=== PATIENT | female | born 1985 | race African-American/Black ===

== ENCOUNTER 2017-09-02 09:54 | Emergency (ER) | payer SELFPAY ==
[~2017-09-02] VITALS: Ht 167.6 cm; Wt 80.0 kg
[2017-09-02] MEDS ORDERED: [UNRECOGNIZED DRUG - REMARK] (10:06)
[2017-09-02] MEDS ORDERED: SODIUM CHLORIDE 0.9% 1,000 ML IV ONE (10:17)
[2017-09-02] MEDS ORDERED: KETOROLAC 30MG/ML VIAL IV STA (10:17)
[2017-09-02] MEDS ORDERED: ONDANSETRON HCL 4MG/2ML VIAL IV STA (10:17)
[2017-09-02] MEDS ORDERED: FAMOTIDINE 20MG/2ML VIAL IV STA (10:17)
[2017-09-02 11:00] LABS: BASOPHILS % 0.5 % (0.0-2.0); EOSINOPHILS % 0.1 % (0.0-5.0); HEMATOCRIT. 40.7 % (36.0-48.0); HEMOGLOBIN. 13.8 g/dL (12.0-16.0); LYMPHOCYTES % 15.1 % (20.0-50.0); MEAN CORPUSCULAR HEMOGLOBIN 29.5 pg (28.0-32.0); MEAN CORPUSCULAR VOLUME 87.3 fL (81.0-99.0); MEAN PLATELET VOLUME 6.2 fl (7.4-10.4); MONOCYTES % 6.4 % (2.0-8.0); NEUTROPHILS % 77.9 % (40.0-76.0); PLATELET 370 x1000/uL (130-400); RED BLOOD CELL COUNT 4.66 mill/uL (4.2-5.4); RED CELL DISTRIBUTION WIDTH 13.7 % (11.6-14.6)
[2017-09-02 11:07] LABS: CHLORIDE 104 mEq/L (98-107)
[2017-09-02 11:09] LABS: INR 1.2; PROTHROMBIN TIME 12.1 sec (9.4-11.6)
[2017-09-02 11:11] LABS: HCG SCREEN NEGATIVE
[2017-09-02 12:40] LABS: CLARITY URINE CLEAR (CLEAR); COLOR URINE YELLOW (YELLOW); KETONES URINE 4+ (NEGATIVE); LEUKOCYTE ESTERASE URINE NEGATIVE (NEGATIVE); NITRITE URINE NEGATIVE (NEGATIVE); OCCULT BLOOD URINE TRACE (NEGATIVE); PH URINE 5.5 (4.5-8.0); PROTEIN URINE 1+ (NEGATIVE); SPECIFIC GRAVITY URINE 1.032 (1.005-1.030)
[2017-09-02] MEDS ORDERED: ONDANSETRON HCL 4MG TABLET PO ONE (13:00)
[2017-09-02 13:54] VITALS: BP 102/59
== END 2017-09-02 13:55 | disposition home or self-care (01) ==
LOC: ER 09:54
DX: R11.2 Nausea with vomiting, unspecified (principal); R19.7 Diarrhea, unspecified; R10.30 Lower abdominal pain, unspecified; M25.531 Pain in right wrist; F17.200 Nicotine dependence, unspecified, uncomplicated; F12.10 Cannabis abuse, uncomplicated; Z98.51 Tubal ligation status; W01.198A Fall on same level from slipping, tripping and stumbling with subsequent striking against other object, initial encounter; Y93.89 Activity, other specified; Y92.89 Other specified places as the place of occurrence of the external cause; Y99.8 Other external cause status
CPT/HCPCS: 36415; 73100; 80053; 81003; 83690; 84703; 85025; 85610; 96361; 96374; 96375; 99285; J1885; J2405; J3490; J7030; Z7610

== ENCOUNTER 2017-10-03 06:12 | Emergency (ER) | payer SELFPAY ==
[~2017-10-03] VITALS: Ht 170.2 cm; Wt 78.0 kg
[~2017-10-03 06:12] MED LIST: [UNRECOGNIZED DRUG - REMARK]
[2017-10-03] MEDS ORDERED: SODIUM CHLORIDE 0.9% 1,000 ML IV ONE (07:39)
[2017-10-03] MEDS ORDERED: ONDANSETRON HCL 4MG/2ML VIAL IV STA (07:39)
[2017-10-03] MEDS ORDERED: MORPHINE SULFATE 4 MG/ML CPJ (NOT FOR IM USE) IV STA (07:39)
[2017-10-03 08:10] LABS: BASOPHILS % 0.8 % (0.0-2.0); EOSINOPHILS % 0.2 % (0.0-5.0); HEMATOCRIT. 36.8 % (36.0-48.0); HEMOGLOBIN. 12.5 g/dL (12.0-16.0); LYMPHOCYTES % 24.1 % (20.0-50.0); MEAN CORPUSCULAR HEMOGLOBIN 29.7 pg (28.0-32.0); MEAN CORPUSCULAR VOLUME 87.7 fL (81.0-99.0); MONOCYTES % 6.3 % (2.0-8.0); NEUTROPHILS % 68.6 % (40.0-76.0); PLATELET 434 x1000/uL (130-400); RED CELL DISTRIBUTION WIDTH 14.1 % (11.6-14.6)
[2017-10-03 08:15] LABS: CLARITY URINE CLOUDY (CLEAR); COLOR URINE YELLOW (YELLOW); KETONES URINE 1+ (NEGATIVE); LEUKOCYTE ESTERASE URINE NEGATIVE (NEGATIVE); NITRITE URINE NEGATIVE (NEGATIVE); OCCULT BLOOD URINE 3+ (NEGATIVE); PH URINE 7.5 (4.5-8.0); PROTEIN URINE TRACE (NEGATIVE); SPECIFIC GRAVITY URINE 1.008 (1.005-1.030)
[2017-10-03 08:18] LABS: CHLORIDE 109 mEq/L (98-107)
[2017-10-03 08:26] LABS: HCG SCREEN NEGATIVE
[2017-10-03] MEDS ORDERED: KETOROLAC 30MG/ML VIAL IV ONE (09:30)
[2017-10-03 12:26] VITALS: BP 99/64
== END 2017-10-03 12:28 | disposition home or self-care (01) ==
LOC: ER 06:12
DX: R10.9 Unspecified abdominal pain (principal); F17.200 Nicotine dependence, unspecified, uncomplicated
CPT/HCPCS: 36415; 76830; 76856; 80053; 81003; 81025; 83690; 84703; 85025; 96361; 96374; 96375; 99285; J1885; J2270; J2405; J7030

== ENCOUNTER 2018-01-06 11:39 | Emergency (ER) | payer SELFPAY ==
[~2018-01-06] VITALS: Ht 167.6 cm; Wt 77.0 kg
[2018-01-06 12:15] VITALS: BP 126/57
[2018-01-07] MEDS ORDERED: truvada (09:24)
== END 2018-01-06 18:40 | disposition left against medical advice (07) ==
LOC: ER 12:59
DX: O26.899 Other specified pregnancy related conditions, unspecified trimester (principal); R10.30 Lower abdominal pain, unspecified; Z53.21 Procedure and treatment not carried out due to patient leaving prior to being seen by health care provider

== ENCOUNTER 2018-01-07 08:50 | Emergency (ER) | payer MEDICAID ==
[~2018-01-07] VITALS: Ht 167.6 cm; Wt 66.4 kg
[2018-01-07] MEDS ORDERED: truvada (09:24)
[2018-01-07 11:24] LABS: BASOPHILS % 0.7 % (0.0-2.0); EOSINOPHILS % 2.7 % (0.0-5.0); HEMATOCRIT. 42.7 % (36.0-48.0); HEMOGLOBIN. 14.4 g/dL (12.0-16.0); LYMPHOCYTES % 24.8 % (20.0-50.0); MEAN CORPUSCULAR HEMOGLOBIN 30.5 pg (28.0-32.0); MEAN CORPUSCULAR VOLUME 90.6 fL (81.0-99.0); MEAN PLATELET VOLUME 6.1 fl (7.4-10.4); MONOCYTES % 6.5 % (2.0-8.0); NEUTROPHILS % 65.3 % (40.0-76.0); PLATELET 429 x1000/uL (130-400); RED BLOOD CELL COUNT 4.71 mill/uL (4.2-5.4); RED CELL DISTRIBUTION WIDTH 14.2 % (11.6-14.6)
[2018-01-07 11:31] LABS: CHLORIDE 105 mEq/L (98-107)
[2018-01-07 11:43] LABS: B-HCG QUANTITATIVE 417 mIU/mL (<3)
[2018-01-07 12:57] VITALS: BP 125/80
== END 2018-01-07 13:11 | disposition home or self-care (01) ==
LOC: ER 10:16
DX: O20.0 Threatened abortion (principal); O99.331 Smoking (tobacco) complicating pregnancy, first trimester; F17.200 Nicotine dependence, unspecified, uncomplicated; Z3A.01 Less than 8 weeks gestation of pregnancy; F12.10 Cannabis abuse, uncomplicated
CPT/HCPCS: 36415; 76830; 76856; 81025; 84702; 86850; 86900; 99284

== ENCOUNTER 2018-01-10 09:20 | Emergency (ER) | payer MEDICAID ==
[~2018-01-10] VITALS: Ht 167.6 cm; Wt 66.0 kg
[~2018-01-10 09:20] MED LIST changes: +truvada
[2018-01-10 14:29] LABS: BASOPHILS % 0.7 % (0.0-2.0); HEMOGLOBIN. 13.5 g/dL (12.0-16.0); LYMPHOCYTES % 43.5 % (20.0-50.0); MEAN CORPUSCULAR HEMOGLOBIN 29.9 pg (28.0-32.0); MEAN CORPUSCULAR VOLUME 90.6 fL (81.0-99.0); MEAN PLATELET VOLUME 6.2 fl (7.4-10.4); MONOCYTES % 8.3 % (2.0-8.0); NEUTROPHILS % 42.5 % (40.0-76.0); PLATELET 395 x1000/uL (130-400); RED BLOOD CELL COUNT 4.52 mill/uL (4.2-5.4); RED CELL DISTRIBUTION WIDTH 14.3 % (11.6-14.6)
[2018-01-10 14:33] LABS: CHLORIDE 106 mEq/L (98-107)
[2018-01-10 14:46] LABS: B-HCG QUANTITATIVE 758 mIU/mL (<3)
[2018-01-10 15:40] VITALS: BP 112/67
== END 2018-01-10 15:43 | disposition home or self-care (01) ==
LOC: ER 09:20
DX: O20.0 Threatened abortion (principal); O99.321 Drug use complicating pregnancy, first trimester; F12.90 Cannabis use, unspecified, uncomplicated; O34.81 Maternal care for other abnormalities of pelvic organs, first trimester; Z3A.00 Weeks of gestation of pregnancy not specified
CPT/HCPCS: 36415; 76801; 81025; 84702; 99284

== ENCOUNTER 2018-01-13 07:47 | Emergency (ER) | payer MEDICAID ==
[~2018-01-13] VITALS: Ht 167.6 cm; Wt 66.0 kg
[2018-01-13] MEDS ORDERED: PNV1TABL50 MT (08:02)
[2018-01-13 09:26] LABS: CLARITY URINE TURBID (CLEAR); COLOR URINE YELLOW (YELLOW); KETONES URINE NEGATIVE (NEGATIVE); LEUKOCYTE ESTERASE URINE NEGATIVE (NEGATIVE); NITRITE URINE POSITIVE (NEGATIVE); OCCULT BLOOD URINE NEGATIVE (NEGATIVE); PROTEIN URINE NEGATIVE (NEGATIVE); SPECIFIC GRAVITY URINE 1.019 (1.005-1.030)
[2018-01-13 10:32] LABS: BASOPHILS % 1.2 % (0.0-2.0); EOSINOPHILS % 7.9 % (0.0-5.0); HEMATOCRIT. 40.4 % (36.0-48.0); HEMOGLOBIN. 13.4 g/dL (12.0-16.0); MEAN CORPUSCULAR HEMOGLOBIN 30.2 pg (28.0-32.0); MEAN CORPUSCULAR VOLUME 90.8 fL (81.0-99.0); MEAN PLATELET VOLUME 6.5 fl (7.4-10.4); MONOCYTES % 9.6 % (2.0-8.0); NEUTROPHILS % 42.3 % (40.0-76.0); PLATELET 380 x1000/uL (130-400); RED BLOOD CELL COUNT 4.45 mill/uL (4.2-5.4); RED CELL DISTRIBUTION WIDTH 14.4 % (11.6-14.6)
[2018-01-13 12:30] VITALS: BP 105/65
== END 2018-01-13 12:53 | disposition home or self-care (01) ==
LOC: ER 10:31
DX: O20.0 Threatened abortion (principal); O23.31 Infections of other parts of urinary tract in pregnancy, first trimester; Z3A.01 Less than 8 weeks gestation of pregnancy; Z87.440 Personal history of urinary (tract) infections; Z98.890 Other specified postprocedural states
CPT/HCPCS: 36415; 81025; 84702; 99283

== ENCOUNTER 2018-02-10 15:59 | Emergency (ER) | payer MEDICAID, OTHER ==
[~2018-02-10] VITALS: Ht 167.6 cm; Wt 8.0 kg
[~2018-02-10 15:59] MED LIST changes: +PNV1TABL50 MT
[2018-02-10 16:49] VITALS: BP 103/58
== END 2018-02-10 20:10 | disposition left against medical advice (07) ==
LOC: ER 15:59
DX: O26.891 Other specified pregnancy related conditions, first trimester (principal); Z3A.01 Less than 8 weeks gestation of pregnancy; Z53.21 Procedure and treatment not carried out due to patient leaving prior to being seen by health care provider

== ENCOUNTER 2018-02-11 10:52 | Inpatient (IN) | payer OTHER, MEDICAID ==
[~2018-02-11] VITALS: Ht 167.6 cm; Wt 68.0 kg
[2018-02-11 20:43] LABS: BASOPHILS % 0.8 % (0.0-2.0); EOSINOPHILS % 0.7 % (0.0-5.0); HEMATOCRIT. 40.8 % (36.0-48.0); HEMOGLOBIN. 13.5 g/dL (12.0-16.0); LYMPHOCYTES % 41.1 % (20.0-50.0); MEAN CORPUSCULAR HEMOGLOBIN 29.6 pg (28.0-32.0); MEAN CORPUSCULAR VOLUME 89.3 fL (81.0-99.0); MONOCYTES % 9.1 % (2.0-8.0); NEUTROPHILS % 48.3 % (40.0-76.0); PLATELET 450 x1000/uL (130-400); RED BLOOD CELL COUNT 4.56 mill/uL (4.2-5.4); RED CELL DISTRIBUTION WIDTH 13.3 % (11.6-14.6)
[2018-02-11 20:46] LABS: CHLORIDE 102 mEq/L (98-107)
[2018-02-11 21:23] LABS: B-HCG QUANTITATIVE 4017 mIU/mL (<3)
[2018-02-11] MEDS ORDERED: SODIUM CHLORIDE 0.9% 1,000 ML IV ONE (22:32)
[2018-02-11] MEDS ORDERED: MORPHINE SULFATE 2 MG/ML CPJ (NOT FOR IM USE) IV ONE (23:15)
[2018-02-11 23:16] LABS: CLARITY URINE CLEAR (CLEAR); COLOR URINE YELLOW (YELLOW); KETONES URINE 1+ (NEGATIVE); LEUKOCYTE ESTERASE URINE NEGATIVE (NEGATIVE); NITRITE URINE POSITIVE (NEGATIVE); OCCULT BLOOD URINE 3+ (NEGATIVE); PH URINE 6.5 (4.5-8.0); PROTEIN URINE NEGATIVE (NEGATIVE); SPECIFIC GRAVITY URINE 1.012 (1.005-1.030)
[2018-02-12] VITALS (7 sets, daily range): BP systolic 70–104; BP diastolic 37–58
[2018-02-12] MEDS ORDERED: ONDANSETRON HCL 4MG/2ML INJ IV PRN (01:00)
[2018-02-12] MEDS ORDERED: HYDROCODONE/ACETAMINOPHEN 5/325MG TABLET PO PRN (01:00)
[2018-02-12] MEDS: IBUPROFEN 600MG TABLET PO PRN ×2 (01:32→22:46)
[2018-02-12] MEDS: DEXT 5%/LACTATED RINGERS 1,000 ML IV SCH ×4 (01:34→19:52)
[2018-02-12 06:37] LABS: BASOPHILS % 0.7 % (0.0-2.0); EOSINOPHILS % 1.3 % (0.0-5.0); HEMATOCRIT. 32.4 % (36.0-48.0); LYMPHOCYTES % 49.2 % (20.0-50.0); MEAN CORPUSCULAR HEMOGLOBIN 30.2 pg (28.0-32.0); MEAN CORPUSCULAR VOLUME 88.8 fL (81.0-99.0); MEAN PLATELET VOLUME 6.2 fl (7.4-10.4); NEUTROPHILS % 39.8 % (40.0-76.0); PLATELET 379 x1000/uL (130-400); RED BLOOD CELL COUNT 3.65 mill/uL (4.2-5.4); RED CELL DISTRIBUTION WIDTH 13.2 % (11.6-14.6)
[2018-02-12] MEDS ORDERED: ACETAMINOPHEN 325MG TABLET PO NR (17:00)
[2018-02-12] MEDS ORDERED: CEFAZOLIN 1000MG PREMIX 50 ML IV SCH (23:00)
[2018-02-13] VITALS: BP 94/50
[2018-02-13] MEDS ORDERED: METHOTREXATE SODIUM/PF 50 MG/2 ML VIAL IM SCH
[2018-02-13 04:00] VITALS: BP 94/43
[2018-02-13] MEDS: DEXT 5%/LACTATED RINGERS 1,000 ML IV SCH (05:58)
[2018-02-13 08:00] VITALS: BP 89/46
[2018-02-13 12:00] VITALS: BP 80/40
[2018-02-13 16:00] VITALS: BP 87/46
[2018-02-13 16:07] LABS: BASOPHILS % 0.8 % (0.0-2.0); EOSINOPHILS % 1.9 % (0.0-5.0); HEMOGLOBIN. 10.6 g/dL (12.0-16.0); LYMPHOCYTES % 38.1 % (20.0-50.0); MEAN CORPUSCULAR HEMOGLOBIN 30.3 pg (28.0-32.0); MEAN PLATELET VOLUME 6.3 fl (7.4-10.4); MONOCYTES % 9.2 % (2.0-8.0); PLATELET 335 x1000/uL (130-400); RED BLOOD CELL COUNT 3.49 mill/uL (4.2-5.4); RED CELL DISTRIBUTION WIDTH 13.1 % (11.6-14.6)
[2018-02-13 17:29] VITALS: BP 87/46
== END 2018-02-13 18:11 | disposition home or self-care (01) | DRG 833 ==
LOC: ER 10:52 → 6EST 22:33 → ENRESERV 23:20
PROVIDERS: ADMIT Obstetrics & Gynecology; ATTEND Obstetrics & Gynecology
DX: O00.90 Unspecified ectopic pregnancy without intrauterine pregnancy (principal); Z3A.01 Less than 8 weeks gestation of pregnancy
CPT/HCPCS: 36415; 76801; 84702; 86850; 86900; 96360; 99291; J0690; J7030; J7050; J7121; J9260